=== PATIENT | male | born 1995 | race Caucasian/White ===

== ENCOUNTER 2019-06-16 18:21 | Inpatient (IN) | payer OTHER ==
[~2019-06-16] VITALS: Ht 188 cm; Wt 139.0 kg
[~2019-06-16 18:21] MED LIST: CEPH500C PO; DIC250 PO; HYDR-845 PO; LORA10TA3 PO; TRIA15CR55 TOP
[2019-06-16] MEDS ORDERED: CEFEPIME 2GM/50 ML (PMX) 50 ML IVPB STA (20:55)
[2019-06-16] MEDS ORDERED: VANCOMYCIN 1 GM (PMX) 250 ML IVPB ONE (21:00)
[2019-06-16] MEDS ORDERED: ACETAMINOPHEN 325 MG TAB PO PRN (22:00)
[2019-06-16] MEDS ORDERED: ONDANSETRON 4 MG INJ IV PRN (22:00)
[2019-06-17] MEDS ORDERED: NACL 0.9% 3 ML SYG IV SCH (02:00)
[2019-06-17] MEDS ORDERED: VANCOMYCIN 1 GM in 250 ML IVPB ONE (02:00)
[2019-06-17] MEDS ORDERED: ALBUTEROL/IPRATROPIUM (NEB) 3 ML AMP HHN PRN (02:00)
[2019-06-17] MEDS ORDERED: ACETAMINOPHEN 325 MG TAB PO PRN (02:00)
[2019-06-17] MEDS ORDERED: ONDANSETRON 4 MG INJ IV PRN (02:00)
[2019-06-17] MEDS: SOD CHLORIDE 0.9% 1,000 ML IV SCH ×2 (02:51→18:48)
[2019-06-17] MEDS ORDERED: VANCOMYCIN IV PER PHARMACY XX SCH (09:00)
[2019-06-17] MEDS: CEFEPIME 1GM/50 ML (PMX) 50 ML IVPB SCH ×2 (09:45→21:12)
[2019-06-17] MEDS: HEPARIN 5,000 UNIT/1 ML VIAL SC SCH ×2 (09:45→21:18)
[2019-06-17] MEDS: VANCOMYCIN 1 GM 250 ML IVPB SCH ×2 (12:23→22:26)
[2019-06-17] MEDS ORDERED: VANCOMYCIN 1.5 GM/NS 250 ML 250 ML IVPB SCH (14:00)
[2019-06-17 18:41] VITALS: Ht 188 cm; Wt 139.0 kg
[2019-06-17] MEDS ORDERED: DIPHENHYDRAMINE 50 MG INJ IV PRN (19:00)
[2019-06-17 20:00] VITALS: BP 138/74; RESP 19
[2019-06-17] MEDS ORDERED: TRIAMCINOLONE ACET 0.1% 15 GM CR TOP PRN (20:30)
[2019-06-17] MEDS: LORATADINE 10 MG TAB PO SCH (21:00)
[2019-06-18 02:00] VITALS: BP 123/77; RESP 18
[2019-06-18] MEDS ORDERED: VANCOMYCIN 1 GM 250 ML IVPB SCH (06:00)
[2019-06-18 08:00] VITALS: BP 132/66; PULSE 86; RESP 18
[2019-06-18] MEDS: LORATADINE 10 MG TAB PO SCH (09:00)
[2019-06-18] MEDS: HEPARIN 5,000 UNIT/1 ML VIAL SC SCH ×2 (10:07→21:10)
[2019-06-18] MEDS: SOD CHLORIDE 0.9% 1,000 ML IV SCH ×2 (13:32→17:36)
[2019-06-18] MEDS: CEPHALEXIN 500 MG CAP PO SCH ×2 (13:32→17:59)
[2019-06-18 14:46] VITALS: BP 135/78; PULSE 94; RESP 18
[2019-06-18 20:56] VITALS: BP 120/56; PULSE 80; RESP 20
[2019-06-19] MEDS: CEPHALEXIN 500 MG CAP PO SCH ×3 (00:15→12:44)
[2019-06-19 02:55] VITALS: BP 122/60; PULSE 81; RESP 20
[2019-06-19] MEDS: SOD CHLORIDE 0.9% 1,000 ML IV SCH (06:56)
[2019-06-19 08:00] VITALS: BP 121/65; PULSE 72; RESP 18
[2019-06-19] MEDS: LORATADINE 10 MG TAB PO SCH (09:00)
[2019-06-19] MEDS: HEPARIN 5,000 UNIT/1 ML VIAL SC SCH (10:29)
[2019-06-19] MEDS ORDERED: LIDOCAINE 2%/EPI MPF (SDV) 20 ML VIAL INJ STA (12:15)
[2019-06-19 14:00] VITALS: BP 132/72; PULSE 90; RESP 17
== END 2019-06-19 17:05 | disposition home or self-care (01) | DRG 607 ==
LOC: FTE 18:21 → 5EC 21:49
PROVIDERS: ADMIT Internal Medicine; ATTEND Internal Medicine
PROC: 0HB7XZX Excision of Abdomen Skin, External Approach, Diagnostic (ICD-10-PCS; principal; 2019-06-19)
DX: R21 Rash and other nonspecific skin eruption (principal); Z68.39 Body mass index [BMI] 39.0-39.9, adult; E66.01 Morbid (severe) obesity due to excess calories; Z90.49 Acquired absence of other specified parts of digestive tract; L08.9 Local infection of the skin and subcutaneous tissue, unspecified; R76.8 Other specified abnormal immunological findings in serum
CPT/HCPCS: 36415; 71045; 80048; 80053; 80307; 81003; 83605; 83735; 84100; 84484; 85025; 85610; 85651; 85730; 86060; 86592; 86644; 86664; 86703; 86738; 86762; 87045; 87070; 87086; 87529; 88305; 93005; 96374; 96375; J0692; J1644; J3370; J7030